=== PATIENT | female | born 1970 | race Caucasian/White ===

== ENCOUNTER 2018-03-28 19:28 | Emergency (ER) | payer OTHER ==
[~2018-03-28] VITALS: Ht 172.7 cm; Wt 59.0 kg
[~2018-03-28 19:28] MED LIST: ACEBUTCAFT PO; ALBU90I; ALBU90OI INH; ALBU90OI6; ALBU90OI61 INH; ALPR.5; ALPR.5 PO; AMOCLA875 PO; AMOX500 PO; ATOR20; ATOR20 PO; AZIT250 PO; BENTYL10 MG; BENZ100A PO; BUSP10 PO; BUTALBITAL PO; CETI10; CETI5 PO; CIPR500 PO; CLON1; CLON1 PO; CODBUTACEC; CODBUTACEC PO; CRUTCH3 USE; CYCL10 PO; Cyclobenzaprine5 MG PO; DIAZ2 PO; DIAZ5 PO; DICY20; DICY20 PO; DIPATR PO; DIPH50 PO; DIVA500EC; DIVA500EC PO; DOXE10 PO; DULO30 PO; DULO60 PO; EQUATE ALLERGY PO; ESCI10 PO; ESTR2 PO; FLUT.05NI; FLUT110OIA; FLUT44OIA; FLUT44OIA IH; GABA300; HYDACE10B PO; HYDACE5 PO; HYDCHL25; HYDMOR2 PO; HYDMOR4 PO; IBUP600 PO; INDO25 PO; LANS30EC; MELO7.5; METO10 PO; MILN100T PO; MIRT15 PO; MONT10T; MONT10T PO; NAPR375 PO; NAPR500; NAPR500 PO; OLANZAPINE15 MG; OXYACE10; OXYACE5T PO; PERCOCET 10/325 MG PO; PERCOCET PO; PHENA200 PO; PRED20 PO; PROACE100; PROC10; PROC10 PO; PROM25 PO; QUET100; QUET200 PO; RANI150; RANI150 PO; RXHYDACE PO; SERT100 PO; SUCR1 PO; TIZA4; TIZA4 PO; TRAM50 PO; TRAZ100 PO; Tylenol325 MG PO; ZIPR40; ZYRTEC10 M1; [UNRECOGNIZED DRUG - OTHER]
== END 2018-03-28 21:09 | disposition home or self-care (01) ==
LOC: ER 19:28
DX: S01.01XA Laceration without foreign body of scalp, initial encounter (principal); S50.312A Abrasion of left elbow, initial encounter; V29.9XXA Motorcycle rider (driver) (passenger) injured in unspecified traffic accident, initial encounter; Z88.1 Allergy status to other antibiotic agents; Z88.8 Allergy status to other drugs, medicaments and biological substances; Z79.899 Other long term (current) drug therapy; G43.909 Migraine, unspecified, not intractable, without status migrainosus; K21.9 Gastro-esophageal reflux disease without esophagitis; F17.200 Nicotine dependence, unspecified, uncomplicated
CPT/HCPCS: 12001; 70450; 72125; 73030; 73080; 73502; 96374; 99284-25; J1885